=== PATIENT | female | born 1955 | race Caucasian/White ===

== ENCOUNTER 2016-07-17 09:37 | Outpatient (CLI) | payer BC | END 2016-07-17 14:03 | LOC: D.MAMMO 09:37 | DX: Z12.31 Encounter for screening mammogram for malignant neoplasm of breast (principal) ==

== ENCOUNTER 2017-07-28 08:00 | Outpatient (CLI) | payer BC | END 2017-07-28 12:09 | disposition home or self-care (01) | LOC: D.MAMMO 08:00 | DX: Z12.31 Encounter for screening mammogram for malignant neoplasm of breast (principal) ==

== ENCOUNTER → 2018-08-18 08:00 | Outpatient (CLI) | payer BC | END | disposition home or self-care (01) | LOC: D.MAMMO 08:00 | PROVIDERS: ATTEND Family Medicine | DX: Z12.31 Encounter for screening mammogram for malignant neoplasm of breast (principal) ==

== ENCOUNTER 2018-10-01 05:23 | Day surgery (SDC) | payer BC ==
[~2018-10-01] VITALS: Ht 167.6 cm; Wt 56.7 kg
[~2018-10-01 05:23] MED LIST: K-DUR20 MEQ PO; MAXZIDE 75/501 TAB PO; ZOLOFT50 MG PO
[2018-10-01 06:10] VITALS: BP 130/68; Ht 167.6 cm; Wt 56.7 kg
[2018-10-01 06:35] LABS: HEMATOCRIT 41.8 % (36.0-48.0); HEMOGLOBIN 14.4 g/dL (12-16); MCH 30.9 pg (26.0-34.0); MCHC 34.4 g/dL (31.0-37.0); MCV 89.7 fL (80.0-100.0); MEAN PLATELET VOLUME 9.5 fL (7.4-10.4); RBC 4.66 10x6/uL (4.00-5.40); RDW 12.7 % (11.5-14.5); WBC 5.8 10x3/uL (4.8-10.8)
[2018-10-01] MEDS ORDERED: HYDROCODON-ACE1 EAC7 PO (07:57)
[2018-10-01] MEDS ORDERED: ZOFRAN ODT4 MG/UDTAB PO (07:57)
--- NOTE | 2018-10-01 08:42 | NUR ---
0820-RECD TO ROOM FROM PACU. AROUSES EASILY. IV PATENT. R KNEE DRESSING DRY AND INTACT. ICE APPLIED. DR CHACON IN TO REPORT TO SPOUSE.
--- NOTE | 2018-10-01 09:35 | NUR ---
PATIENT WALKS TO BATHROOM WITH STAND-BY ASSIST WITH WALKER, AMBULATES WITHOUT DIZZINESS OR UNSTEADINESS. VOIDS IN TOIET WITHOUT DIFFICULTY. LEFT HAND PIV DC'D WITH TIP INTACT. DISCHARGE INSTRUCTIONS REVIEWED WITH PATIETN AND SPOUSE. 0912 DISCHARGED HOME VIA WHEELCHAIR TO PRIVATE VEHICLE WITH SPOUSE
--- NOTE | 2018-10-01 09:53 | OP ---
PATIENT NAME: SULY STAPLES MEDICAL RECORD: [id number] :57 LOCATION:NED ADMISSION DATE: SURGEON: PAULO CHACON DO DATE OF OPERATION: 10/01/2018 PROCEDURE PERFORMED: Right knee arthroscopy with partial medial and partial lateral meniscectomy, patellar chondroplasty and abrasion chondroplasty. PREOPERATIVE DIAGNOSES: Right knee medial and lateral meniscal tears and chondromalacia patella. 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 SURGEON: Paulo Chacon DO INDICATIONS: Ms. Staples is a 62-year-old female who has had right knee pain for quite some time. She has tried all manner of conservative management. The x-rays did not show severe arthritis. The MRI did show some mild chondromalacia and medial and lateral meniscal tears. I informed her that I could not do anything about her chondromalacia, but her meniscus as I could trim out if she is having more symptoms of catching, popping, locking, and indeed she was tired of dealing with that pain and wanted something done surgically. I informed that her knee pain may get worse due to chondromalacia. She may get better too and she was aware of that risk as well as infection, bleeding, damage to nerves and vessels, need for surgery, blood clots, and even . She signed the consent. DESCRIPTION OF PROCEDURE: The patient was taken to the operative suite, laid in supine position, given general anesthetic, 2 grams Ancef. The right lower extremity was prepped and draped in sterile fashion. A timeout was performed and everyone was agreeance with the correct side, site, patient and procedure. The knee was then flexed down and portal sites were injected with 0.25% Marcaine with epinephrine, 2 mL in each site, the incision was then made over the lateral portal. The trocar was entered into the knee and knee was brought to extension and suprapatellar pouch was entered. The camera was entered and no loose body was seen in suprapatellar pouch. However, the chondromalacia of the patella was seen. No loose bodies in the lateral gutter, medial gutter. Knee was then flexed down and the medial compartment was entered. An 18-gauge spinal needle was used to establish the medial portal and 11-blade scalpel. A probe was then brought in. The meniscal tear was seen in the posterior horn of the medial meniscus. Once medial portal had been established and a biter was brought in, the meniscal tear of the medial meniscus was trimmed out and then a shaver was brought in to bring out any loose bodies. This was then removed and then the probe was brought in to probe the ACL. It looked good and then this was parked in the notch. The knee was then dyulza-pe-mbfa'ed and the lateral compartment was entered. The chondromalacia was noted on the medial femoral condyle as well and any loose bodies were removed with a shaver. Of note, the lateral compartment was entered. The meniscal tear was seen in the lateral meniscus on the anterior horn and middle third and chondromalacia grade III of the lateral condyle was noted at that time to. Meniscus tear was trimmed out with biter and shaver and then the knee was brought to extension. The shaver was used to trim off the loose cartilage on the patella during abrasion chondroplasty as well as in the trochlea. Trochlea was noted to have grade IV chondromalacia. Water was turned off, suction was turned on at that time and excess fluid was removed from OPERATIVE REPORT [id number] SULY STAPLES KATE the knee. The portal sites were then closed with 4-0 Monocryl in inverted interrupted fashion. Steri-Strips, Adaptic, 4 x 4, ABD, Webril, Noel wrap and XIOMARA stocking was placed up to the knee. The patient was awakened and taken to recovery in stable condition. ESTIMATED BLOOD LOSS: Minimal. COMPLICATION: None. TRANSINT:[id number] Voice Confirmation ID: [id number] DOCUMENT ID: [id number] PAULO CHACON DO at 0953 CC: [id number] DICTATION DATE: 10/01/18 0753 PRIMER AND POWDER CANNING LEADER: 10/01/18 0851 [facility] [address] [id number]
== END 2018-10-01 09:45 | disposition home or self-care (01) ==
LOC: D.OPS 05:23 → D.PAN 07:00 → D.OPS 07:00 → D.PAN 10-15 07:00 → D.OPS 10-15 07:00
PROVIDERS: Anesthesiology; ATTEND Orthopaedic Surgery
DX: S83.281A Other tear of lateral meniscus, current injury, right knee, initial encounter (principal); S83.241A Other tear of medial meniscus, current injury, right knee, initial encounter; X58.XXXA Exposure to other specified factors, initial encounter; M22.41 Chondromalacia patellae, right knee

== ENCOUNTER → 2018-10-27 09:15 | Outpatient (CLI) | payer BC ==
[2018-10-01 06:10] VITALS: BMI 20.2
[~2018-10-27 09:15] MED LIST changes: +ALEVE220 MG PO; +ATIVAN0.5 MG PO; +HYDROCODON-ACE1 EAC7 PO; +ZOFRAN ODT4 MG/UDTAB PO
== END | disposition home or self-care (01) ==
LOC: D.LABREF 09:15
PROVIDERS: ATTEND Orthopaedic Surgery
DX: M17.12 Unilateral primary osteoarthritis, left knee (principal)

== ENCOUNTER → 2018-10-27 17:11 | Outpatient (CLI) | payer BC ==
[2018-10-01 06:10] VITALS: BMI 20.2
== END | disposition home or self-care (01) ==
LOC: D.LABREF 17:11
PROVIDERS: ATTEND Orthopaedic Surgery
DX: M17.12 Unilateral primary osteoarthritis, left knee (principal)

== ENCOUNTER 2018-10-28 16:32 | Inpatient (IN) | payer BC ==
[~2018-10-28] VITALS: Ht 167.6 cm; Wt 55.0 kg
[~2018-10-28 16:32] MED LIST changes: -ALEVE220 MG PO; -ATIVAN0.5 MG PO
[2018-11-02] MEDS ORDERED: ALEVE220 MG PO (13:13)
[2018-11-02] MEDS ORDERED: ATIVAN0.5 MG PO (13:13)
[2018-11-03 11:12] LABS: HEMATOCRIT 39.5 % (36.0-48.0); LYMPHOCYTES 48.2 % (15-50); MCH 31.5 pg (26.0-34.0); MCHC 35.4 g/dL (31.0-37.0); MCV 88.8 fL (80.0-100.0); MEAN PLATELET VOLUME 8.6 fL (7.4-10.4); NEUTROPHILS 43.1 % (40-80); PLATELET COUNT 237 10x3/uL (130-400); RBC 4.45 10x6/uL (4.00-5.40); RDW 12.3 % (11.5-14.5); WBC 5.2 10x3/uL (4.8-10.8)
[2018-11-03 11:14] LABS: CALC OSMOLALITY 269 mosm/kg (275-300); CALCIUM 9.7 mg/dL (8.5-10.1); CARBON DIOXIDE 34.8 mmol/L (21.0-32.0); CHLORIDE - SERUM 98 mmol/L (98-107); CREATININE - SERUM 0.7 mg/dL (0.6-1.3); GLUCOSE 94 mg/dL (74-106); POTASSIUM - SERUM 3.6 mmol/L (3.5-5.1); SODIUM 136 mmol/L (136-145); UREA NITROGEN 8 mg/dL (7-18); eGFR NON AFRICAN AMERICAN 90 mL/min (90-120)
[2018-11-03 11:18] LABS: INR 1.02 (0.85-1.17); PROTIME 12.9 SECONDS (11.6-15.0)
[2018-11-03 12:09] LABS: APPEARANCE CLEAR (CLEAR); BILIRUBIN NEGATIVE (NEGATIVE); COLOR YELLOW (YELLOW); GLUCOSE NEGATIVE (NEGATIVE); KETONE NEGATIVE (NEGATIVE); NITRITE NEGATIVE (NEGATIVE); PROTEIN NEGATIVE (NEGATIVE); SPECIFIC GRAVITY 1.005 (1.005-1.020); UROBILINOGEN NORMAL (NORMAL)
[2018-11-09 10:58] VITALS: BP 120/70; BMI 19.7
[2018-11-09 18:25] VITALS: BP 149/72
--- NOTE | 2018-11-09 18:25 | NUR ---
PATIENT TO ROOM WITH IV INTACT. NO COMPLAINTS OR SIGNS OF DISTRESS. VS STABLE. NO PAIN AT THIS TIME. LLE WITH XIOMARA HOSE AND MAIA WRAP ON. PULSE WNL. RIGHT LEG SCD ON AND WORKING. CALL LIGHT WITHIN REACH.
[2018-11-09 20:45] VITALS: BP 139/70
[2018-11-10] VITALS (7 sets, daily range): BP systolic 96–148; BP diastolic 43–64; Ht 167.6 cm; Wt 55.0 kg
--- NOTE | 2018-11-10 00:18 | NUR ---
PT RESTING IN BED. EYES CLOSED. NO SIGNS OF DISTRESS. BREATHING EVEN AND UNLABORED. IV SITE RT FA DRESSING CLEAN DRY AND INTACT. NO SIGNS OF INFECTION. SKIN CLEAN DRY AND INTACT. LT KNEE DRESSING CLEAN DRY AND INTACT. TEDS AND SCDS ON. WILL CONTINUE PLAN OF CARE. CALL LIGHT IN REACH. BED LOWERED AND LOCKED. BED RAILS UPX2.
--- NOTE | 2018-11-10 02:18 | NUR ---
I have reviewed this patient and I concur with the Shift Assessment completed by the Licensed Practical Nurse today this shift.
[2018-11-10 05:46] LABS: HEMATOCRIT 35.2 % (36.0-48.0); HEMOGLOBIN 12.3 g/dL (12-16); MCH 30.5 pg (26.0-34.0); MCHC 34.9 g/dL (31.0-37.0); MCV 87.3 fL (80.0-100.0); MEAN PLATELET VOLUME 9.3 fL (7.4-10.4); RBC 4.03 10x6/uL (4.00-5.40); RDW 12.5 % (11.5-14.5); WBC 9.9 10x3/uL (4.8-10.8)
[2018-11-10 08:34] LABS: CALC OSMOLALITY 279 mosm/kg (275-300); CALCIUM 8.8 mg/dL (8.5-10.1); CARBON DIOXIDE 30.7 mmol/L (21.0-32.0); CHLORIDE - SERUM 104 mmol/L (98-107); CREATININE - SERUM 0.6 mg/dL (0.6-1.3); GLUCOSE 132 mg/dL (74-106); POTASSIUM - SERUM 4.4 mmol/L (3.5-5.1); SODIUM 140 mmol/L (136-145); UREA NITROGEN 9 mg/dL (7-18); eGFR NON AFRICAN AMERICAN > 90 mL/min (90-120)
[2018-11-11 01:10] VITALS: BP 124/60
[2018-11-11 05:56] VITALS: BP 129/67
[2018-11-11 06:24] LABS: BASOPHILS 0.1 % (0-2); EOSINOPHILS 0.8 % (0-7); HEMATOCRIT 33.5 % (36.0-48.0); HEMOGLOBIN 11.4 g/dL (12-16); IMMATURE GRANULOCYTES 0.1 % (0-5); LYMPHOCYTES 34.2 % (15-50); MCH 30.2 pg (26.0-34.0); MCV 88.6 fL (80.0-100.0); MEAN PLATELET VOLUME 9.4 fL (7.4-10.4); NEUTROPHILS 55.8 % (40-80); PLATELET COUNT 200 10x3/uL (130-400); RBC 3.78 10x6/uL (4.00-5.40); RDW 12.9 % (11.5-14.5); WBC 8.3 10x3/uL (4.8-10.8)
[2018-11-11 06:36] LABS: CALC OSMOLALITY 279 mosm/kg (275-300); CALCIUM 8.4 mg/dL (8.5-10.1); CARBON DIOXIDE 32.4 mmol/L (21.0-32.0); CHLORIDE - SERUM 102 mmol/L (98-107); CREATININE - SERUM 0.6 mg/dL (0.6-1.3); GLUCOSE 110 mg/dL (74-106); MAGNESIUM - SERUM 1.6 mg/dL (1.8-2.4); PHOSPHOROUS 3.2 mg/dL (2.5-4.9); POTASSIUM - SERUM 3.8 mmol/L (3.5-5.1); SODIUM 140 mmol/L (136-145); UREA NITROGEN 12 mg/dL (7-18); eGFR NON AFRICAN AMERICAN > 90 mL/min (90-120)
--- NOTE | 2018-11-11 07:52 | NUR ---
PATIENT RECIEVED FROM PREVIOUS NURSE RESTING IN BED. PAIN REPORTED AT 4 AFTER DILAUDID GIVEN. PATIENT AGREED TO HAVE CPM PLACED. DRESSING TO LEFT KNEE CLEAN, DRY AND INTACT. NAUSEA REPORTED WITH PAIN MEDICATION.
[2018-11-11 08:16] VITALS: BP 125/65
[2018-11-11 11:52] VITALS: BP 125/59
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
--- NOTE | 2018-11-11 16:41 | MORECARE ---
CASE MANAGEMENT DISCHARGE SUMMARY PATIENT: SULY CHRISTENSEN KATE UNIT: [id number] ADM DATE: 11/09/18 AGE: 63 : 57 SEX: F ROOM/BED: D.2227 AUTHOR: CARMEL ROCHA PHYSICIAN: REFERRING PHYSICIAN: DARRICK CHACON DO DATE OF SERVICE: 11/11/18 Discharge Plan Patient Name: SULY CHRISTENSEN [facility] [facility] 1955 Planned Disposition: Home Anticipated Discharge Date: 11/12/18 Discharge Date: Expected LOS: 3 Initial Reviewer: [email or web address] Initial Review Date: 11/11/2018 Generated: 11/11/18 5:40 pm External Providers External Provider: Elyssa Paige PT Next Contact Date: Service Request Date: Service Type: Resolution: Reviewer: Comments: Patient Name: SULY CHRISTENSEN Page 64742 at 1641 All edits/amendments must be made on the electronic document DICTATION DATE: 11/11/18 1640 PRODUCTION HAND: LEVY 11/11/18 1640 RPT#: [id number] DC DATE: STATUS: ADM IN [facility] [address] [place] [address] END OF REPORT
--- NOTE | 2018-11-11 16:48 | MORECARE ---
CASE MANAGEMENT DISCHARGE SUMMARY PATIENT: SULY STAPLES UNIT: [id number] ADM DATE: 11/09/18 AGE: 63 : 57 SEX: F ROOM/BED: D.2227 AUTHOR: CARMEL ROCHA PHYSICIAN: REFERRING PHYSICIAN: DARRICK CHACON DO DATE OF SERVICE: 11/11/18 Discharge Plan Patient Name: SULY STAPLES Facility: [facility]:[place] : 1955 Planned Disposition: Home Anticipated Discharge Date: 11/12/18 Discharge Date: Expected LOS: 3 Initial Reviewer: [email or web address] Initial Review Date: 11/11/2018 Generated: 11/11/18 5:48 pm Comments DCP- Discharge Planning Updated by [email or web address]: Gail Almeida on 11/11/18 3:[address] Patient Name: SULY STAPLES Admission Status: Elective Accout number: [id number] Admission Date: 11-09-2018 : 1955 Admission Diagnosis:UNILATERAL PRIMARY OSTEOARTHRITIS, LEFT KNEE Attending: DARRICK CHACON Current LOS: 2 Anticipated DC Date: 11-12-2018 Planned Disposition: Home Primary Insurance: [employer] OUT [facility] CM met with patient to complete initial dc planning assessment. CM educated patient on the CM role and verbal consent given by patient to complete assessment. Patient lives at home with her . At discharge patient plans to return and feels this is a safe discharge. CM discussed availability of home health, rehab services, and medical equipment. She states she has all the DME she needs and Dr. Chacon has already had her CPM and ice machine delivered to her home. I discussed OP PT with her and she would like to go to [facility] on [facility]. I spoke with Freda at [facility] and order and clinical faxed to [phone]. Phone to [place] [phone]. CM will continue to follow and will assist as needed with dc plans/needs. Discharge Planning Comments: Reservoir Engineer: Gail Almeida DCPIA - Discharge Planning Initial Assessment Updated by [email or web address]: Gail Almeida on 11/11/18 4:42 pm * Is the patient Alert and Oriented? Yes * How many steps to enter\exit or inside your home? Ramp/0 * PCP Dr. Herrmann * Pharmacy [facility] on [address] * Preadmission Environment Home with Family * ADLs Independent * Equipment Bedside Commode Other Rolling Walker Shower Chair Tub Bench * Other Equipment CPM Ice machine * List name and contact numbers for known caregivers / representatives who currently or will assist patient after discharge: Dionte Staples - spouse - [phone] * Verbal permission to speak to the caregivers and representatives has been obtained from the patient. Yes * Community resources currently utilized None * Additional services required to return to the preadmission environment? No * Can the patient safely return to the preadmission environment? Yes * Has this patient been hospitalized within the prior 30 days at any hospital? No Last DP export: 11/11/18 3:41 p Patient Name: SULY STAPLES Page 96099 at 1648 All edits/amendments must be made on the electronic document DICTATION DATE: 11/11/181646 LEAD CYTOGENETIC TECHNOLOGIST: LEVY 11/11/181646 RPT#: [id number] DC DATE: STATUS: ADM IN [facility] [address] [place] [address] END OF REPORT
[2018-11-11 17:17] VITALS: BP 134/67
--- NOTE | 2018-11-11 19:00 | NUR ---
BEDSIDE REPORT RECEIVED AND CARE OF PT ASSUMED. PT LYING IN SUPINE POSITION WITH LEFT LEG IN CPM THERAPY. DRESSING ON LEFT KNEE CLEAN AND DRY. IV TO LEFT FA SALINE LOCKED. WILL MONITOR FOR NEEDS.
[2018-11-11 21:08] VITALS: BP 126/61
--- NOTE | 2018-11-11 21:30 | NUR ---
CPM TAKEN OFF LEFT LEG.
--- NOTE | 2018-11-11 21:40 | NUR ---
HS MEDICATIONS GIVEN TO INCLUDE OXY 5 MG PO PER PRN ORDER, PER REQUEST FOR PAIN. WILL MONITOR FOR EFFECTIVENESS.
[2018-11-12 00:30] VITALS: BP 108/58
[2018-11-12 05:04] VITALS: BP 124/68
[2018-11-12 06:28] LABS: BASOPHILS 0.1 % (0-2); EOSINOPHILS 1.4 % (0-7); HEMATOCRIT 33.7 % (36.0-48.0); HEMOGLOBIN 11.1 g/dL (12-16); IMMATURE GRANULOCYTES 0.2 % (0-5); LYMPHOCYTES 24.2 % (15-50); MCH 30.6 pg (26.0-34.0); MCHC 32.9 g/dL (31.0-37.0); MONOCYTES 9.6 % (2-11); NEUTROPHILS 64.5 % (40-80); PLATELET COUNT 200 10x3/uL (130-400); RBC 3.63 10x6/uL (4.00-5.40); RDW 12.7 % (11.5-14.5); WBC 8.8 10x3/uL (4.8-10.8)
[2018-11-12 06:32] LABS: MCV 92.8 fL (80.0-100.0)
[2018-11-12 06:46] LABS: CALC OSMOLALITY 281 mosm/kg (275-300); CALCIUM 8.6 mg/dL (8.5-10.1); CARBON DIOXIDE 35.1 mmol/L (21.0-32.0); CHLORIDE - SERUM 103 mmol/L (98-107); CREATININE - SERUM 0.6 mg/dL (0.6-1.3); GLUCOSE 114 mg/dL (74-106); PHOSPHOROUS 3.4 mg/dL (2.5-4.9); SODIUM 141 mmol/L (136-145); UREA NITROGEN 12 mg/dL (7-18); eGFR NON AFRICAN AMERICAN > 90 mL/min (90-120)
[2018-11-12 06:47] LABS: POTASSIUM - SERUM 4.7 mmol/L (3.5-5.1)
--- NOTE | 2018-11-12 08:00 | NUR ---
ASSESSMENT PER FLOW SHEET. PT IS WITHOUT DISTRESS. CPM IS IN PLACE AND FUNCTIONING PROPERLY.DENIES NEEDS AT PRESENT.MONITOR FOR NEEDS.
[2018-11-12 08:06] VITALS: BP 120/67
[2018-11-12] MEDS ORDERED: OXYCODONE HCL5 M1 PO (11:08)
[2018-11-12] MEDS ORDERED: ELIQUIS2.5 MG PO (11:08)
[2018-11-12] MEDS ORDERED: KEFLEX500 MG PO (11:09)
[2018-11-12] MEDS ORDERED: VISTARIL50 MG PO (11:09)
[2018-11-12] MEDS ORDERED: TORADOL10 MG PO (11:09)
[2018-11-12] MEDS ORDERED: ZOFRAN ODT4 MG/UDTAB PO (11:09)
[2018-11-12] MEDS ORDERED: TRIAMTERENE-HC1 EAC6 PO (11:34)
--- NOTE | 2018-11-12 12:44 | MORECARE ---
CASE MANAGEMENT DISCHARGE SUMMARY PATIENT: SULY STAPLES UNIT: [id number] ADM DATE: 11/09/18 AGE: 63 : 57 SEX: F ROOM/BED: D.2227 AUTHOR: CARMEL ROCHA PHYSICIAN: REFERRING PHYSICIAN: DARRICK CHACON DO DATE OF SERVICE: 11/12/18 Discharge Plan Patient Name: SULY STAPLES Facility[facility]:[place] : 1955 Planned Disposition: Home Anticipated Discharge Date: 11/12/18 Discharge Date: Expected LOS: 3 Initial Reviewer: [email or web address] Initial Review Date: 11/11/2018 Generated: 11/12/18 1:44 pm Comments DCP- Discharge Planning Updated by [email or web address]: aGil Almeida on 11/12/18 11:[address] Patient Name: SULY STAPLES Encounter No: [id number] : 1955 Primary Insurance: [employer] OUT [facility] Anticipated DC Date: 11-12-2018 Planned Disposition: Home External Planned Provider: : DCP follow-up note: Patient and family in agreement with discharge plan. No changes to plan. I spoke with Christina at [facility] PT, her first visit is Thursday at 2:30. I have given her the information and appointment time, she will have OP PT 3 times a week for 6 weeks. Case management will follow and assist as needed. Gail Almeida DCP- Discharge Planning Updated by [email or web address]: Gail Almeida on 11/11/18 3:[address] Patient Name: SULY STAPLES Admission Status: Elective Accout number: [id number] Admission Date: 11-09-2018 : 1955 Admission Diagnosis:UNILATERAL PRIMARY OSTEOARTHRITIS, LEFT KNEE Attending: DARRICK CHACON Current LOS: 2 Anticipated DC Date: 11-12-2018 Planned Disposition: Home Primary Insurance: [employer] OUT [facility] CM met with patient to complete initial dc planning assessment. CM educated patient on the CM role and verbal consent given by patient to complete assessment. Patient lives at home with her . At discharge patient plans to return and feels this is a safe discharge. CM discussed availability of home health, rehab services, and medical equipment. She states she has all the DME she needs and Dr. Chacon has already had her CPM and ice machine delivered to her home. I discussed OP PT with her and she would like to go to [facility] on [facility]. I spoke with Freda at [facility] and order and clinical faxed to [phone]. Phone to [facility] [phone]. CM will continue to follow and will assist as needed with dc plans/needs. Discharge Planning Comments: Track Laying Supervisor: Gail Juan Pablo DCPIA - Discharge Planning Initial Assessment Updated by [email or web address]: Gail Bellojoaquin on 11/11/18 4:42 pm * Is the patient Alert and Oriented? Yes * How many steps to enter\exit or inside your home? Ramp/0 * PCP Dr. Herrmann * Pharmacy [facility] on [address] * Preadmission Environment Home with Family * ADLs Independent * Equipment Bedside Commode Other Rolling Walker Shower Chair Tub Bench * Other Equipment CPM Ice machine * List name and contact numbers for known caregivers / representatives who currently or will assist patient after discharge: Dionte Staples - spouse - [phone] * Verbal permission to speak to the caregivers and representatives has been obtained from the patient. Yes * Community resources currently utilized None * Additional services required to return to the preadmission environment? No * Can the patient safely return to the preadmission environment? Yes * Has this patient been hospitalized within the prior 30 days at any hospital? No Last DP export: 11/11/18 3:48 p Patient Name: SULY STAPLES Page 52408 at 1244 All edits/amendments must be made on the electronic document DICTATION DATE: 11/12/18 1244 MOTORS ASSEMBLER: LEVY 11/12/18 1244 RPT#: [id number] DC DATE: STATUS: ADM IN [facility] [address] [place] [address] END OF REPORT
--- NOTE | 2018-11-12 12:50 | NUR ---
DISCHARGE INSTRUCTIONS,STATES UNDERSTANDING. IV DCD WITH CATH TIP INTACT.WAITING ON RIDE FOR TRANSPORT HOME
--- NOTE | 2018-11-12 12:50 | NUR ---
DRESSING CHNAGE TO LEFT KNEE ORDERED
[2018-11-12 12:56] VITALS: BP 137/84
--- NOTE | 2018-11-12 14:20 | NUR ---
LEFT UNIT VIA WHEELCHAIR FOR TRANSPORT HOME
--- NOTE | 2018-11-15 09:51 | MORECARE ---
CASE MANAGEMENT DISCHARGE SUMMARY PATIENT: SULY STAPLES UNIT: [id number] ADM DATE: 11/09/18 AGE: 63 : 57 SEX: F ROOM/BED: D.2227 AUTHOR: CARMEL ROCHA PHYSICIAN: REFERRING PHYSICIAN: DARRICK CHACON DO DATE OF SERVICE: 11/15/18 Discharge Plan Patient Name: SULY STAPLES Facility: [facility]:[place] : 1955 Planned Disposition: Home Anticipated Discharge Date: 11/12/18 Discharge Date: 11/12/2018 Expected LOS: 3 Initial Reviewer: [email or web address] Initial Review Date: 11/11/2018 Generated: 11/15/18 10:51 am Comments DCP- Discharge Planning Updated by [email or web address]: Gail Almeida on 11/12/18 11:[address] Patient Name: SULY STAPLES Encounter No: [id number] : 1955 Primary Insurance: [employer] OUT [facility] Anticipated DC Date: 11-12-2018 Planned Disposition: Home External Planned Provider: : DCP follow-up note: Patient and family in agreement with discharge plan. No changes to plan. I spoke with Christina at [facility] PT, her first visit is Thursday at 2:30. I have given her the information and appointment time, she will have OP PT 3 times a week for 6 weeks. Case management will follow and assist as needed. Gail Almeida DCP- Discharge Planning Updated by [email or web address]: Gail Almeida on 11/11/18 3:[address] Patient Name: SULY STAPLES Admission Status: Elective Accout number: [id number] Admission Date: 11-09-2018 : 1955 Admission Diagnosis:UNILATERAL PRIMARY OSTEOARTHRITIS, LEFT KNEE Attending: DARRICK CHACON Current LOS: 2 Anticipated DC Date: 11-12-2018 Planned Disposition: Home Primary Insurance: [employer] [place] OUT OF [facility] CM met with patient to complete initial dc planning assessment. CM educated patient on the CM role and verbal consent given by patient to complete assessment. Patient lives at home with her . At discharge patient plans to return and feels this is a safe discharge. CM discussed availability of home health, rehab services, and medical equipment. She states she has all the DME she needs and Dr. Chacon has already had her CPM and ice machine delivered to her home. I discussed OP PT with her and she would like to go to [facility] on [facility]. I spoke with Freda at [facility] and order and clinical faxed to [phone]. Phone to [facility] [phone]. CM will continue to follow and will assist as needed with dc plans/needs. Discharge Planning Comments: Personal Lines Insurance Agent: Gail Bellojaoquin DCPIA - Discharge Planning Initial Assessment Updated by [email or web address]: Gail Almeida on 11/11/18 4:42 pm * Is the patient Alert and Oriented? Yes * How many steps to enter\exit or inside your home? Ramp/0 * PCP Dr. Herrmann * Pharmacy [facility] on [address] * Preadmission Environment Home with Family * ADLs Independent * Equipment Bedside Commode Other Rolling Walker Shower Chair Tub Bench * Other Equipment CPM Ice machine * List name and contact numbers for known caregivers / representatives who currently or will assist patient after discharge: Dionte Staples - spouse - [phone] * Verbal permission to speak to the caregivers and representatives has been obtained from the patient. Yes * Community resources currently utilized None * Additional services required to return to the preadmission environment? No * Can the patient safely return to the preadmission environment? Yes * Has this patient been hospitalized within the prior 30 days at any hospital? No Last DP export: 11/12/18 11:44 a Patient Name: SULY STAPLES Page 01896 at 0951 All edits/amendments must be made on the electronic document DICTATION DATE: 11/15/18949 HUMAN RESOURCES OPERATIONS MANAGER: LEVY 11/15/18949 RPT#: [id number] DC DATE:11/12/18 STATUS: DIS IN [facility] [address] [place] [address] END OF REPORT
== END 2018-11-12 14:20 | disposition home or self-care (01) | DRG 470 ==
LOC: D.MS 11-09 09:55 → D.SDCHOLD 11-09 09:55 → D.MS 11-09 18:01
PROVIDERS: Internal Medicine Nephrology; ADMIT Orthopaedic Surgery; ATTEND Orthopaedic Surgery
PROC: 0SRD0J9 Replacement of Left Knee Joint with Synthetic Substitute, Cemented, Open Approach (ICD-10-PCS; principal; 2018-11-09 12:00)
DX: M17.12 Unilateral primary osteoarthritis, left knee (principal); I10 Essential (primary) hypertension; F41.9 Anxiety disorder, unspecified; E83.42 Hypomagnesemia

== ENCOUNTER → 2019-08-18 10:02 | Outpatient (CLI) | payer BC ==
[2018-11-10 02:20] VITALS: BMI 19.5
[~2019-08-18 10:02] MED LIST changes: +ALEVE220 MG PO; +ATIVAN0.5 MG PO; +ELIQUIS2.5 MG PO; +KEFLEX500 MG PO; +OXYCODONE HCL5 M1 PO; +TORADOL10 MG PO; +TRIAMTERENE-HC1 EAC6 PO; +VISTARIL50 MG PO
== END | disposition home or self-care (01) ==
LOC: D.MRI 10:02
PROVIDERS: ATTEND Orthopaedic Surgery
DX: M54.16 Radiculopathy, lumbar region (principal)